=== PATIENT | female | born 1950 | race Caucasian/White ===

== ENCOUNTER 2016-06-02 07:25 | Day surgery (SDC) ==
[2016-06-02] MEDS ORDERED: LR 1,000 ML ONE (07:53)
[2016-06-02] MEDS ORDERED: MYLICON DROPS (DOSE) MISC ONE (10:55)
[2016-06-02] MEDS ORDERED: DIPRIVAN 1% ONE ×2 (12:16→12:18)
[2016-06-02] MEDS ORDERED: VERSED ONE (12:16)
[2016-06-02] MEDS ORDERED: MORPHINE ONE (12:17)
[2016-06-02 12:31] VITALS: BP 114/64
[2016-06-02] MEDS ORDERED: XYLOCAINE-MPF 2% ONE (14:07)
[2016-06-02] MEDS ORDERED: ROMAZICON (DOSE) ONE (14:07)
--- NOTE | 2016-06-02 23:38 | OPERATIVE NOTE ---
PROCEDURE DATE: 06/02/2016 REFERRING PHYSICIAN: Fransisco Robertson MD. INDICATION FOR PROCEDURE: 1. Screening colonoscopy. 2. Constipation. 3. History of gluten sensitivity. 4. History of lactose sensitivity. PROCEDURE PERFORMED: Colonoscopy. CONSENT: Informed consent was obtained from the patient prior to the procedure. The risks, benefits, and alternatives were discussed. MEDICATION: The patient received monitored anesthesia care. PERFORMING PHYSICIAN: Sondra Salter MD. ASSISTANTS: 1. ST Evette. 2. Shelbi Hunter RN. 3. Gustavo Whiteside CRNA. 4. Pietro Hsu MD (anesthesia). COMPLICATIONS: None. ESTIMATED BLOOD LOSS: None. SPECIMENS REMOVED: None. CECAL INTUBATION TIME: 6 minutes. WITHDRAWAL TIME: 10 minutes. PREP QUALITY: Fair. FINDINGS: After sedation was achieved, the pediatric colonoscope was inserted to the terminal ileum. The terminal ileum appeared endoscopically normal. The cecal base was coated with fecal residue and required evacuation. Following evacuation of the stool the ileocecal valve and appendiceal orifice appeared endoscopically normal. Upon withdrawal there was rich melanosis coli. There were no large masses or polyps seen in the ascending or transverse colon. In the descending, sigmoid and rectosigmoid colon there were diverticula consistent with diverticulosis but not diverticulitis. In the upper rectum the mucosa appeared normal. On retroflexed view there were small external hemorrhoids. After the exam was complete the lumen was decompressed and the scope was removed without incident. IMPRESSION: 1. Melanosis coli. 2. Diverticulosis. 3. External hemorrhoids. RECOMMENDATION: 1. Begin a high-fiber diet. 2. Add MiraLAX 17 g p.o. daily for constipation. 3. Consider Amitiza and Linzess if constipation persist. 4. We will plan a repeat colonoscopy in 10 years. 5. The patient has a history of dietary intolerances. Therefore, will have the patient return to clinic for diet instruction in the next 4-6 weeks.
== END 2016-06-02 12:30 | disposition home or self-care (01) ==
LOC: ENDO 07:25
PROVIDERS: ATTEND Internal Medicine Gastroenterology
DX: Z12.11 Encounter for screening for malignant neoplasm of colon (principal); K63.89 Other specified diseases of intestine; K57.30 Diverticulosis of large intestine without perforation or abscess without bleeding; K64.4 Residual hemorrhoidal skin tags; E11.9 Type 2 diabetes mellitus without complications; I10 Essential (primary) hypertension; M79.7 Fibromyalgia
CPT/HCPCS: J2250; J2270; J7120